=== PATIENT | female | born 1985 | race Caucasian/White ===

== ENCOUNTER 2020-10-15 17:56 | Inpatient (IN) | payer SELFPAY ==
--- NOTE | 2020-10-15 18:09 | ECG_ITS ---
[facility] ED Test Date: 2020-10-15 Pat Name: Agnieszka Felix Department: Room: Gender: Female Lead Coater: : 1985 Requested By: Octaviano Robertson Order Number: [id number] Burns MD: Francie Tucker M.D. Measurements Intervals [place] Rate: 64 P: 81 SD: 172 QRS: 56 QRSD: 105 T: 73 QT: 396 QTc: 410 Interpretive Statements SINUS RHYTHM INCOMPLETE RIGHT BUNDLE BRANCH BLOCK [90+ ms QRS DURATION, TERMINAL R IN V1/V2, 40+ ms S IN I/aVL/V4/V5/V6] No previous ECG available for comparison Electronically Signed On 10-17-2020 20:34:42 CDT by Francie Tucker M.D. [email or web address] [email or web address] river county hospitalMomentum Biosciencesheltering arms [email or web address]/store/NU/[id number]/[id number] f
[2020-10-15 18:11] VITALS: BP 125/101; PULSE 65; RESP 18; TEMP 36.7; O2SAT 100
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
[2020-10-15] MEDS: neomycin-poly-bacitracin oint 0.9 gm Pkt 3 APPLIC TOPICAL (18:47)
[2020-10-15 18:57] LABS: Basophils # 0.1 10^3/uL (0.0-0.1); Basophils % 0.9 %; Eosinophils # 0.3 10^3/uL (0.0-0.8); Eosinophils % 3.2 %; Hematocrit 41.2 % (37.0-47.0); Hemoglobin 13.5 g/dL (11.5-15.3); Lymphocytes # 3.5 10^3/uL (0.8-4.8); Lymphocytes % 32.6 %; Mean Corpuscular HGB Conc 32.8 g/dL (30.0-36.0); Mean Corpuscular Hemoglobin 29.5 pg (28.0-34.0); Mean Corpuscular Volume 90.2 fL (81-99); Mean Platelet Volume 10.2 fL (7.4-10.4); Monocytes # 0.5 10^3/uL (0.2-0.9); Monocytes % 4.9 %; Neutrophils # 6.25 10^3/uL (1.8-7.7); Nucleated Red Blood Cells % 0 %; Platelet Count 256 10^3/cmm (130-400); Red Blood Count 4.57 10^6/uL (4.1-5.3); Red Cell Distribution Width 12.6 % (12.1-15.1); White Blood Count 10.8 10^3/uL (4.0-10.0)
[2020-10-15 18:58] LABS: Add Urine Microscopic? NO; Charge for UA Resulting for Rev
[2020-10-15 19:13] LABS: Amphetamines Screen Urine Positive (Negative); Barbiturates Screen Urine Negative (Negative); Benzodiazepines Screen Urine Positive (Negative); Bilirubin Urine Neg (Negative); Blood Urine Neg (Negative); Cocaine Screen Urine Negative (Negative); Glucose Urine UA Norm (Normal); Ketones Urine Negative (Negative); Leukocyte Esterase Urine Negative (Negative); Nitrate Urine Negative (Negative); Opiate Screen Urine Negative (Negative); PCP Screen Urine Negative (Negative); Protein Urine Neg (Negative); THC Screen Urine Positive (Negative); Urine Appearance Clear (CLEAR); Urine Color Yellow (Yellow); Urobilinogen Urine Norm (Negative); pH Urine 5 (5-7)
[2020-10-15 19:38] LABS: Alanine Aminotransferase 13 U/L (0-33); Albumin Level 4.6 g/dL (3.5-5.2); Alkaline Phosphatase 64 IU/L (35-105); Anion Gap 17.5 (5-19); Aspartate Amino Transferase 18 U/L (0-32); Blood Urea Nitrogen 12 mg/dL (6-20); Calcium 9.6 mg/dL (8.5-10.5); Carbon Dioxide 22 mmol/L (22-29); Chloride 104 mmol/L (98-107); Globulin 2.4 g/dL (1.3-4.6); Glucose 82 mg/dL (65-115); Osmolality Calculated 287 mOsm/kg (285-295); Potassium 4.5 mmol/L (3.5-5.1); Sodium 139 mmol/L (136-145); Total Bilirubin 0.5 mg/dL (0.15-1.2)
[2020-10-15 20:15] LABS: Acetaminophen < 5.0 ug/mL (10-30); Alcohol Level < 10 mg/dL (0-10)
[2020-10-15 20:31] VITALS: BP 129/92; PULSE 68; RESP 17; O2SAT 98
[2020-10-15 21:41] LABS: HCG Qualitative Urine. Negative (Negative)
[2020-10-15 22:00] VITALS: BP 127/78; PULSE 96; RESP 16; TEMP 37; O2SAT 98
[2020-10-16] MEDS: acetaminophen 325 mg Tablet 650 MG PO (05:33)
[2020-10-16 06:00] VITALS: BP 109/74; PULSE 73; RESP 15; TEMP 36.8; O2SAT 97
[2020-10-16 14:00] VITALS: BP 117/76; PULSE 74; RESP 17; TEMP 36.7; O2SAT 97
[2020-10-16] MEDS: nicotine 2 mg Gum BUCCAL (14:23)
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
[2020-10-16] MEDS: sertraline 50 mg Tablet PO (17:19)
[2020-10-16] MEDS: trazodone 50 mg Tablet PO (20:11)
--- NOTE | 2020-10-16 20:22 | PC.NURSE ---
PM Assessment Pt resting in her room, respirations normal, Heart and lung sounds WNL, denies SI/HI, Denies AH/VH, Denies pain, Pt is cooperative with staff but wants to be left alone, shortly after assessment, pt came to the phone, spoke with family, returned to her room where she is resting calmly.
[2020-10-16 20:24] VITALS: BP 116/80; PULSE 76; RESP 18; TEMP 36.8; O2SAT 98
--- NOTE | 2020-10-16 20:56 | PC.NURSE ---
pt requested sleep med, Trazodone 50mg po given.
[2020-10-17 06:00] VITALS: BP 110/75; PULSE 68; RESP 18; TEMP 36.8; O2SAT 97
[2020-10-17] MEDS: nicotine 21 mg Patch 1 PATCH TRANSDERMA (07:52)
[2020-10-17] MEDS: sertraline 50 mg Tablet PO (07:52)
--- NOTE | 2020-10-17 08:35 | PC.NUTR ---
Nutrition assessment triggered d/t MST score of 3 for decreased appetite and weight loss. Appetite appears good, with pt consuming 75% X 4 meals since admit. Recommend to monitor weight, as pt does report weight loss. See full RD assessment for further details.
--- NOTE | 2020-10-17 11:29 | PM.NPN ---
Subjective NPU Subjective: Interval history: I met with the patient in her room with the door open. She says that she is doing better today. Her mood is improved and she does not feel nearly so depressed or anxious. She says that the voices are farther away, quieter, and mumbling?she cannot make out what they are saying. Therefore, the voices are not making derogatory comments today. Therefore also, she has no urge to cut on herself at this point. She denies visual hallucinations. She denies suicidal and homicidal ideation. She denies side effects from her medication. We talked about her plans for after hospitalization. She is going to go to her mother's house at least for a few days. The patient does describe some itching that started when she got here, before she started on the Zoloft. No side effects noted on Zoloft. Mental Status Exam MSE Comments: I met with the patient in their room, and they were appropriately groomed and dressed wearing hospital scrubs, calm, cooperative, interactive, limited eye contact Mild psychomotor agitation Speech is very quiet at a regular rate and rhythm, not pressured Alert, oriented to person, situation Attention and concentration were intact to exam Memory is adequate for the interview Mood is improved. Affect is shy and nervous. Thought process is logical and goal directed. Thought content No auditory or visual hallucinations, no suicidal ideation or homicidal ideation. 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 She expresses interest in attending rehab and learning to abstain from substance use. It may be that both her mood and psychotic disorders are induced by her drug use. 1. Start Zoloft 50 mg daily for depression. 2. Continue every 15 minute checks for safety. 3. Encourage individual, group and milieu therapies. 4. Encourage sober living treatment after discharge at the highest level of care to which he is willing to commit. Involuntary Hold Information 96 Hour Hold: 96 Hour Involuntary Admission: No Attestations NPU Medical Necessity Statement*: Psychiatric hospitalization is medically necessary to prevent access to lethal means, to reevaluate medication, and to coordinate a safe discharge. I would like for her to have at least 24 hours of improved mood before discharging her. Anticipate discharge tomorrow if she continues to do as well as she is now. 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
[2020-10-17 14:00] VITALS: BP 112/79; PULSE 69; RESP 17; TEMP 36.6; O2SAT 98
[2020-10-17 20:28] VITALS: BP 120/81; PULSE 86; RESP 16; TEMP 36.9; O2SAT 96
[2020-10-17] MEDS: hyDROXYzine 25 mg Capsule 50 MG PO (23:01)
[2020-10-17] MEDS: trazodone 50 mg Tablet PO (23:03)
[2020-10-17] MEDS: hydrocortisone 1% cream 28 gm 1 APPLIC TOPICAL (23:49)
--- NOTE | 2020-10-17 23:50 | PC.NURSE ---
Trazodone 50mg PO for sleep / patient request, Vistaril 50mg PO for anxiety / patient request anxiety and HC cream for itchey bug bites given
[2020-10-18 06:00] VITALS: BP 104/75; PULSE 69; RESP 16; TEMP 36.8; O2SAT 99
[2020-10-18] MEDS: sertraline 50 mg Tablet PO (09:11)
[2020-10-18] MEDS: nicotine 2 mg Gum BUCCAL ×2 (09:11→15:24)
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
[2020-10-18 13:40] VITALS: BP 104/75; PULSE 69; RESP 16; TEMP 36.8; O2SAT 99
[2020-10-18 15:42] VITALS: BP 104/75; PULSE 69; RESP 16; TEMP 36.8; O2SAT 99
== END 2020-10-18 18:15 | disposition home or self-care (01) | DRG 885 ==
LOC: ER 19:32 → NP 20:05
PROVIDERS: Admitting Provider Psychiatry & Neurology Child & Adolescent Psychiatry; Emergency Provider Emergency Medicine; PCP Nurse Practitioner; Visit Provider Psychiatry & Neurology Child & Adolescent Psychiatry
DX: F33.3 Major depressive disorder, recurrent, severe with psychotic symptoms (principal); R45.851 Suicidal ideations; F15.159 Other stimulant abuse with stimulant-induced psychotic disorder, unspecified
CPT/HCPCS: 80053; 80306; 80307; 81003; 81025; 85025; 93005; 99285

== ENCOUNTER 2021-04-07 23:05 | Inpatient (IN) | payer MEDICAID, SELFPAY ==
[2021-04-07 23:26] VITALS: BP 131/88; PULSE 75; RESP 18; TEMP 36.6; O2SAT 98; BMI 22.4
--- NOTE | 2021-04-08 00:17 | W.ED.PSYCHS ---
Documented by User: ROSARIO Bates 04/08/21 17:31 HPI - Psych General: Chief Complaint: Psychiatric Symptoms Stated Complaint: Psyciatric Symptoms-SI Time Seen by Provider: 04/07/21 23:29 History of Present Illness: HPI Narrative: Patient is a 35-year-old female who comes to the ED with SI and auditory hallucinations. She has been having increased thoughts of SI lately but does not have a plan. She admits having a history of methamphetamine abuse but says she has been clean for several months now. Patient says she has been hearing auditory hallucinations for approximately a year now. She states that she hears 3 different voices. 1 voice is that of her sister and she describes it most the time is nice voice and does not say anything negative tomorrow. The other voices of a little girl and it will tell her that she is a terrible person and she should kill herself. The third where she hears tells her everything is going to be okay. Patient denies any other current symptoms. Associated symptoms: Reports auditory hallucinations, depression and suicidal ideation; Deny visual hallucinations or homicidal ideation Review of Systems Const: Denies: fever(s), chills or fatigue Eyes: Denies: change in vision or eye discomfort ENMT: Denies: throat pain, odynophagia, nasal discharge or nasal congestion Card: Denies: chest pain, palpitations, edema, swelling of feet/ankles, dyspnea on exertion or orthopnea Resp: Denies: dyspnea, productive cough or non-productive cough GI: Denies: abdominal pain, nausea, vomiting, diarrhea, constipation or hematochezia : Denies: flank pain, dysuria or hematuria Musc: Denies: neck pain, back pain or extremity swelling Skin/Breast: Denies: rash or new lesions Neuro: Denies: headache(s), numbness in extremities or weakness in extremities Psych: Reports: depression, loss of interest, auditory hallucinations and suicidal ideation; Denies: visual hallucinations or homicidal ideation [facility] ED PFSH: Medical History (Updated 04/09/21 @ 11:08 by Grzegorz Landeros MD) Depression Psychiatric care Female Reproductive History: Date of last menstrual period: 03/16/09 Physical Exam Const: COMMON NORMALS: no acute distress, patient oriented x3 and alert GENERAL APPEARANCE: cooperative and comfortable HENMT: COMMON NORMALS: normocephalic HEAD & SCALP: normocephalic MOUTH: Normal oral and palatal mucosa present THROAT: posterior oropharynx normal and uvula midline Neck/C-Spine: COMMON NORMALS: supple GENERAL: Yes normal visual inspection Resp: COMMON NORMALS: normal respiratory effort, No retractions, No use of accessory muscles and clear to auscultation bilaterally AUSCULTATION: clear to auscultation bilaterally Cardio: COMMON NORMALS: regular rate, regular rhythm, S1 normal heart sound present, S2 normal heart sound present, No gallops present (Cardio), No clicks present (Cardio), No murmurs present (Cardio) and Peripheral pulses 2+ throughout RATE: regular rate RHYTHM: regular rhythm HEART SOUNDS: S1 normal heart sound present and S2 normal heart sound present PERIPHERAL PULSES: Peripheral pulses 2+ throughout GI: COMMON NORMALS: Normal to inspection, nondistended, normoactive bowel sounds present, Soft to palpation, non-tender and no masses PALPATION: Yes Soft to palpation : COMMON NORMALS: Yes no CVA tenderness BLADDER/KIDNEY EXAM: Yes no CVA tenderness Back/Pelvis: COMMON NORMALS: no CVA tenderness Extremity: COMMON NORMALS: normal to inspection Neuro: COMMON NORMALS: patient oriented x3 and moves all extremities SENSORIUM/ORIENTATION: Yes alert Skin: GENERAL SKIN EXAM: dry skin Course Vital Signs: Vital signs: Vital Signs Temperature 97.5 F L 04/09/21 20:54 Pulse Rate 69 04/09/21 20:54 Respiratory Rate 17 04/09/21 20:54 Blood Pressure 144/89 04/09/21 20:54 Pulse Oximetry 96 04/09/21 20:54 MDM - Psych Lab Data Attestation: I reviewed the patient's lab results. Result diagrams: 04/08/21 00:45 04/08/21 00:45 Labs: Lab Results 04/07/21 04/07/21 04/08/21 23:45 23:45 00:45 WBC 8.6 10^3/uL 10^3/uL (4.0-10.0) RBC 4.00 10^6/uL L 10^6/uL (4.1-5.3) Hgb 11.9 g/dL g/dL (11.5-15.3) Hct 36.3 % L % (37.0-47.0) MCV 90.8 fl fl (81-99) MCH 29.8 pg pg (28.0-34.0) MCHC 32.8 g/dL g/dL (30.0-36.0) RDW 12.9 % % (12.1-15.1) Plt Count 268 10^3/cmm 10^3/cmm (130-400) MPV 9.6 fL fL (7.4-10.4) Neut % (Auto) 58.4 % % Lymph % (Auto) 33.5 % % Desha % (Auto) 4.2 % % Eos % (Auto) 3.0 % % Baso % (Auto) 0.7 % % Neut # (Auto) 5.03 10^3/uL 10^3/uL (1.8-7.7) Lymph # (Auto) 2.9 10^3/uL 10^3/uL (0.8-4.8) Desha # (Auto) 0.4 10^3/uL 10^3/uL (0.2-0.9) Eos # (Auto) 0.3 10^3/uL 10^3/uL (0.0-0.8) Baso # (Auto) 0.1 10^3/uL 10^3/uL (0.0-0.1) Nucleated RBC % (auto) 0 % % Nucleated RBCs # 0.0 /100WBC /100WBC Sodium Potassium Chloride Carbon Dioxide Anion Gap BUN Creatinine GFR Calculation Glucose Calculated Osmolality Calcium Total Bilirubin AST ALT Alkaline Phosphatase Total Protein Albumin Globulin HCG, Qual Urine Color Yellow (Yellow) Urine Appearance Clear (CLEAR) Urine pH 5 (5-7) Ur Specific [place] 1.015 (1.005-1.030) Urine Protein Neg (Negative) Urine Glucose (UA) Norm (Normal) Urine Ketones Negative (Negative) Urine Blood Neg (Negative) Urine Nitrate Negative (Negative) Urine Bilirubin Neg (Negative) Urine Urobilinogen Norm mg/dL mg/dL (Negative) Ur Leukocyte Esterase Negative (Negative) Salicylates Urine Opiates Screen Negative ng/mL ng/mL (Negative) Acetaminophen Ur Barbiturates Screen Negative ng/mL ng/mL (Negative) Ur Phencyclidine Scrn Negative ng/mL ng/mL (Negative) Ur Amphetamines Screen Negative ng/mL ng/mL (Negative) U Benzodiazepines Scrn Negative ng/mL ng/mL (Negative) Urine Cocaine Screen Negative ng/mL ng/mL (Negative) U Marijuana (THC) Screen Negative ng/mL ng/mL (Negative) Ethyl Alcohol 04/08/21 04/08/21 00:45 00:45 WBC RBC Hgb Hct MCV MCH MCHC RDW Plt Count MPV Neut % (Auto) Lymph % (Auto) Desha % (Auto) Eos % (Auto) Baso % (Auto) Neut # (Auto) Lymph # (Auto) Desha # (Auto) Eos # (Auto) Baso # (Auto) Nucleated RBC % (auto) Nucleated RBCs # Sodium 139 mmol/L mmol/L (136-145) Potassium 4.4 mmol/L mmol/L (3.5-5.1) Chloride 104 mmol/L mmol/L (98-107) Carbon Dioxide 23 mmol/L mmol/L (22-29) Anion Gap 16.4 (5-19) BUN 16 mg/dL mg/dL (6-20) Creatinine 0.6 mg/dL mg/dL (0.5-0.9) GFR Calculation 113.8 mL/min mL/min (90-130) Glucose 108 mg/dL mg/dL (65-115) Calculated Osmolality 290 mOsm/kg mOsm/kg (285-295) Calcium 9.9 mg/dL mg/dL (8.5-10.5) Total Bilirubin 0.2 mg/dL mg/dL (0.15-1.2) AST 17 U/L U/L (0-32) ALT 25 U/L U/L (0-33) Alkaline Phosphatase 58 IU/L IU/L (35-105) Total Protein 6.7 g/dL g/dL (6.6-8.7) Albumin 4.1 g/dL g/dL (3.5-5.2) Globulin 2.6 g/dL g/dL (1.3-4.6) HCG, Qual Negative (Negative) Urine Color Urine Appearance Urine pH Ur Specific [place] Urine Protein Urine Glucose (UA) Urine Ketones Urine Blood Urine Nitrate Urine Bilirubin Urine Urobilinogen Ur Leukocyte Esterase Salicylates 0.8 mg/dL L mg/dL (3-10) Urine Opiates Screen Acetaminophen < 5.0 ug/mL L ug/mL (10-30) Ur Barbiturates Screen Ur Phencyclidine Scrn Ur Amphetamines Screen U Benzodiazepines Scrn Urine Cocaine Screen U Marijuana (THC) Screen Ethyl Alcohol < 10 mg/dL mg/dL (0-10) Discharge Plan Discharge Patient Disposition: Admitted As Inpatient Admit Provider: Grzegorz Landeros Condition: Stable Sign Out Sign Out Data: Patient Sign Out occurred on 04/08/21 at 07:12. Patient's care was discussed, and care was transferred from to Abram Jimenez DO. Coding Level of Care Code ED Director Of Leadership Development for Chg Fwd Exam Comprehensive Documented by User: Abram Jimenez DO 04/08/21 07:39 HPI - Psych General: Chief Complaint: Psychiatric Symptoms Stated Complaint: Psyciatric Symptoms-SI Time Seen by Provider: 04/07/21 23:29 PFSH ED PFSH: Medical History (Updated 04/09/21 @ 11:08 by Grzegorz Landeros MD) Depression Psychiatric care Course Vital Signs: Vital signs: Vital Signs Temperature 97.5 F L 04/09/21 20:54 Pulse Rate 69 04/09/21 20:54 Respiratory Rate 17 04/09/21 20:54 Blood Pressure 144/89 04/09/21 20:54 Pulse Oximetry 96 04/09/21 20:54 MDM - Psych MDM Narrative Medical decision making narrative: Care assumed a change of shift from Dr. Bello. Chart reviewed discussed Dr. Tobin orders written for acute psychosis suicidal ideation. Lab Data Result diagrams: 04/08/21 00:45 04/08/21 00:45 Labs: Lab Results 04/07/21 04/07/21 04/08/21 23:45 23:45 00:45 WBC 8.6 10^3/uL 10^3/uL (4.0-10.0) RBC 4.00 10^6/uL L 10^6/uL (4.1-5.3) Hgb 11.9 g/dL g/dL (11.5-15.3) Hct 36.3 % L % (37.0-47.0) MCV 90.8 fl fl (81-99) MCH 29.8 pg pg (28.0-34.0) MCHC 32.8 g/dL g/dL (30.0-36.0) RDW 12.9 % % (12.1-15.1) Plt Count 268 10^3/cmm 10^3/cmm (130-400) MPV 9.6 fL fL (7.4-10.4) Neut % (Auto) 58.4 % % Lymph % (Auto) 33.5 % % Desha % (Auto) 4.2 % % Eos % (Auto) 3.0 % % Baso % (Auto) 0.7 % % Neut # (Auto) 5.03 10^3/uL 10^3/uL (1.8-7.7) Lymph # (Auto) 2.9 10^3/uL 10^3/uL (0.8-4.8) Desha # (Auto) 0.4 10^3/uL 10^3/uL (0.2-0.9) Eos # (Auto) 0.3 10^3/uL 10^3/uL (0.0-0.8) Baso # (Auto) 0.1 10^3/uL 10^3/uL (0.0-0.1) Nucleated RBC % (auto) 0 % % Nucleated RBCs # 0.0 /100WBC /100WBC Sodium Potassium Chloride Carbon Dioxide Anion Gap BUN Creatinine GFR Calculation Glucose Calculated Osmolality Calcium Total Bilirubin AST ALT Alkaline Phosphatase Total Protein Albumin Globulin HCG, Qual Urine Color Yellow (Yellow) Urine Appearance Clear (CLEAR) Urine pH 5 (5-7) Ur Specific [place] 1.015 (1.005-1.030) Urine Protein Neg (Negative) Urine Glucose (UA) Norm (Normal) Urine Ketones Negative (Negative) Urine Blood Neg (Negative) Urine Nitrate Negative (Negative) Urine Bilirubin Neg (Negative) Urine Urobilinogen Norm mg/dL mg/dL (Negative) Ur Leukocyte Esterase Negative (Negative) Salicylates Urine Opiates Screen Negative ng/mL ng/mL (Negative) Acetaminophen Ur Barbiturates Screen Negative ng/mL ng/mL (Negative) Ur Phencyclidine Scrn Negative ng/mL ng/mL (Negative) Ur Amphetamines Screen Negative ng/mL ng/mL (Negative) U Benzodiazepines Scrn Negative ng/mL ng/mL (Negative) Urine Cocaine Screen Negative ng/mL ng/mL (Negative) U Marijuana (THC) Screen Negative ng/mL ng/mL (Negative) Ethyl Alcohol 04/08/21 04/08/21 00:45 00:45 WBC RBC Hgb Hct MCV MCH MCHC RDW Plt Count MPV Neut % (Auto) Lymph % (Auto) Desha % (Auto) Eos % (Auto) Baso % (Auto) Neut # (Auto) Lymph # (Auto) Desha # (Auto) Eos # (Auto) Baso # (Auto) Nucleated RBC % (auto) Nucleated RBCs # Sodium 139 mmol/L mmol/L (136-145) Potassium 4.4 mmol/L mmol/L (3.5-5.1) Chloride 104 mmol/L mmol/L (98-107) Carbon Dioxide 23 mmol/L mmol/L (22-29) Anion Gap 16.4 (5-19) BUN 16 mg/dL mg/dL (6-20) Creatinine 0.6 mg/dL mg/dL (0.5-0.9) GFR Calculation 113.8 mL/min mL/min (90-130) Glucose 108 mg/dL mg/dL (65-115) Calculated Osmolality 290 mOsm/kg mOsm/kg (285-295) Calcium 9.9 mg/dL mg/dL (8.5-10.5) Total Bilirubin 0.2 mg/dL mg/dL (0.15-1.2) AST 17 U/L U/L (0-32) ALT 25 U/L U/L (0-33) Alkaline Phosphatase 58 IU/L IU/L (35-105) Total Protein 6.7 g/dL g/dL (6.6-8.7) Albumin 4.1 g/dL g/dL (3.5-5.2) Globulin 2.6 g/dL g/dL (1.3-4.6) HCG, Qual Negative (Negative) Urine Color Urine Appearance Urine pH Ur Specific [place] Urine Protein Urine Glucose (UA) Urine Ketones Urine Blood Urine Nitrate Urine Bilirubin Urine Urobilinogen Ur Leukocyte Esterase Salicylates 0.8 mg/dL L mg/dL (3-10) Urine Opiates Screen Acetaminophen < 5.0 ug/mL L ug/mL (10-30) Ur Barbiturates Screen Ur Phencyclidine Scrn Ur Amphetamines Screen U Benzodiazepines Scrn Urine Cocaine Screen U Marijuana (THC) Screen Ethyl Alcohol < 10 mg/dL mg/dL (0-10) Discharge Plan Discharge Patient Disposition: Admitted As Inpatient Admit Provider: Grzegorz Landeros Condition: Stable Sign Out Sign Out Data: Patient Sign Out occurred on 04/08/21 at 07:12. Patient's care was discussed, and care was transferred from to Abram Jimenez DO. Coding Level of Care Code ED Director Of Leadership Development for Chg Fwd Exam Comprehensive Documented by User: Chano Bello DO 04/09/21 22:26 HPI - Psych General: Chief Complaint: Psychiatric Symptoms Stated Complaint: Psyciatric Symptoms-SI Time Seen by Provider: 04/07/21 23:29 History of Present Illness: HPI Narrative: This patient was originally seen by Mr Aleksey PA-C. I agree with his history, evaluation, and treatment. [facility] ED PFSH: Medical History (Updated 04/09/21 @ 11:08 by Grzegorz Landeros MD) Depression Psychiatric care Course Vital Signs: Vital signs: Vital Signs Temperature 97.5 F L 04/09/21 20:54 Pulse Rate 69 04/09/21 20:54 Respiratory Rate 17 04/09/21 20:54 Blood Pressure 144/89 04/09/21 20:54 Pulse Oximetry 96 04/09/21 20:54 MDM - Psych Lab Data Result diagrams: 04/08/21 00:45 04/08/21 00:45 Labs: Lab Results 04/07/21 04/07/21 04/08/21 23:45 23:45 00:45 WBC 8.6 10^3/uL 10^3/uL (4.0-10.0) RBC 4.00 10^6/uL L 10^6/uL (4.1-5.3) Hgb 11.9 g/dL g/dL (11.5-15.3) Hct 36.3 % L % (37.0-47.0) MCV 90.8 fl fl (81-99) MCH 29.8 pg pg (28.0-34.0) MCHC 32.8 g/dL g/dL (30.0-36.0) RDW 12.9 % % (12.1-15.1) Plt Count 268 10^3/cmm 10^3/cmm (130-400) MPV 9.6 fL fL (7.4-10.4) Neut % (Auto) 58.4 % % Lymph % (Auto) 33.5 % % Desha % (Auto) 4.2 % % Eos % (Auto) 3.0 % % Baso % (Auto) 0.7 % % Neut # (Auto) 5.03 10^3/uL 10^3/uL (1.8-7.7) Lymph # (Auto) 2.9 10^3/uL 10^3/uL (0.8-4.8) Desha # (Auto) 0.4 10^3/uL 10^3/uL (0.2-0.9) Eos # (Auto) 0.3 10^3/uL 10^3/uL (0.0-0.8) Baso # (Auto) 0.1 10^3/uL 10^3/uL (0.0-0.1) Nucleated RBC % (auto) 0 % % Nucleated RBCs # 0.0 /100WBC /100WBC Sodium Potassium Chloride Carbon Dioxide Anion Gap BUN Creatinine GFR Calculation Glucose Calculated Osmolality Calcium Total Bilirubin AST ALT Alkaline Phosphatase Total Protein Albumin Globulin HCG, Qual Urine Color Yellow (Yellow) Urine Appearance Clear (CLEAR) Urine pH 5 (5-7) Ur Specific [place] 1.015 (1.005-1.030) Urine Protein Neg (Negative) Urine Glucose (UA) Norm (Normal) Urine Ketones Negative (Negative) Urine Blood Neg (Negative) Urine Nitrate Negative (Negative) Urine Bilirubin Neg (Negative) Urine Urobilinogen Norm mg/dL mg/dL (Negative) Ur Leukocyte Esterase Negative (Negative) Salicylates Urine Opiates Screen Negative ng/mL ng/mL (Negative) Acetaminophen Ur Barbiturates Screen Negative ng/mL ng/mL (Negative) Ur Phencyclidine Scrn Negative ng/mL ng/mL (Negative) Ur Amphetamines Screen Negative ng/mL ng/mL (Negative) U Benzodiazepines Scrn Negative ng/mL ng/mL (Negative) Urine Cocaine Screen Negative ng/mL ng/mL (Negative) U Marijuana (THC) Screen Negative ng/mL ng/mL (Negative) Ethyl Alcohol 04/08/21 04/08/21 00:45 00:45 WBC RBC Hgb Hct MCV MCH MCHC RDW Plt Count MPV Neut % (Auto) Lymph % (Auto) Desha % (Auto) Eos % (Auto) Baso % (Auto) Neut # (Auto) Lymph # (Auto) Desha # (Auto) Eos # (Auto) Baso # (Auto) Nucleated RBC % (auto) Nucleated RBCs # Sodium 139 mmol/L mmol/L (136-145) Potassium 4.4 mmol/L mmol/L (3.5-5.1) Chloride 104 mmol/L mmol/L (98-107) Carbon Dioxide 23 mmol/L mmol/L (22-29) Anion Gap 16.4 (5-19) BUN 16 mg/dL mg/dL (6-20) Creatinine 0.6 mg/dL mg/dL (0.5-0.9) GFR Calculation 113.8 mL/min mL/min (90-130) Glucose 108 mg/dL mg/dL (65-115) Calculated Osmolality 290 mOsm/kg mOsm/kg (285-295) Calcium 9.9 mg/dL mg/dL (8.5-10.5) Total Bilirubin 0.2 mg/dL mg/dL (0.15-1.2) AST 17 U/L U/L (0-32) ALT 25 U/L U/L (0-33) Alkaline Phosphatase 58 IU/L IU/L (35-105) Total Protein 6.7 g/dL g/dL (6.6-8.7) Albumin 4.1 g/dL g/dL (3.5-5.2) Globulin 2.6 g/dL g/dL (1.3-4.6) HCG, Qual Negative (Negative) Urine Color Urine Appearance Urine pH Ur Specific [place] Urine Protein Urine Glucose (UA) Urine Ketones Urine Blood Urine Nitrate Urine Bilirubin Urine Urobilinogen Ur Leukocyte Esterase Salicylates 0.8 mg/dL L mg/dL (3-10) Urine Opiates Screen Acetaminophen < 5.0 ug/mL L ug/mL (10-30) Ur Barbiturates Screen Ur Phencyclidine Scrn Ur Amphetamines Screen U Benzodiazepines Scrn Urine Cocaine Screen U Marijuana (THC) Screen Ethyl Alcohol < 10 mg/dL mg/dL (0-10) Discharge Plan Discharge Patient Disposition: Admitted As Inpatient Admit Provider: Grzegorz Landeros Condition: Stable Sign Out Sign Out Data: Patient Sign Out occurred on 04/08/21 at 07:12. Patient's care was discussed, and care was transferred from to Abram Jimenez DO. Coding Level of Care Code ED Director Of Leadership Development for Chg Fwd Exam Comprehensive
[2021-04-08 00:22] LABS: Add Urine Microscopic? NO; Charge for UA Resulting for Rev
[2021-04-08 00:24] LABS: Urine Color Yellow (Yellow)
[2021-04-08 00:25] LABS: Bilirubin Urine Neg (Negative); Blood Urine Neg (Negative); Glucose Urine UA Norm (Normal); Ketones Urine Negative (Negative); Leukocyte Esterase Urine Negative (Negative); Nitrate Urine Negative (Negative); Protein Urine Neg (Negative); Specific Gravity, Urine 1.015 (1.005-1.030); Urine Appearance Clear (CLEAR); Urobilinogen Urine Norm (Negative); pH Urine 5 (5-7)
[2021-04-08 00:33] LABS: Amphetamines Screen Urine Negative (Negative); Barbiturates Screen Urine Negative (Negative); Benzodiazepines Screen Urine Negative (Negative); Cocaine Screen Urine Negative (Negative); Opiate Screen Urine Negative (Negative); PCP Screen Urine Negative (Negative); THC Screen Urine Negative (Negative)
[2021-04-08 00:52] LABS: Basophils # 0.1 10^3/uL (0.0-0.1); Basophils % 0.7 %; Eosinophils # 0.3 10^3/uL (0.0-0.8); Hematocrit 36.3 % (37.0-47.0); Hemoglobin 11.9 g/dL (11.5-15.3); Lymphocytes # 2.9 10^3/uL (0.8-4.8); Lymphocytes % 33.5 %; Mean Corpuscular HGB Conc 32.8 g/dL (30.0-36.0); Mean Corpuscular Hemoglobin 29.8 pg (28.0-34.0); Mean Corpuscular Volume 90.8 fl (81-99); Mean Platelet Volume 9.6 fL (7.4-10.4); Monocytes # 0.4 10^3/uL (0.2-0.9); Monocytes % 4.2 %; Neutrophils # 5.03 10^3/uL (1.8-7.7); Neutrophils % 58.4 %; Nucleated Red Blood Cells % 0 %; Platelet Count 268 10^3/cmm (130-400); Red Cell Distribution Width 12.9 % (12.1-15.1); White Blood Count 8.6 10^3/uL (4.0-10.0)
[2021-04-08 01:03] LABS: HCG, Serum Qual Negative (Negative)
[2021-04-08 01:06] LABS: Alanine Aminotransferase 25 U/L (0-33); Albumin Level 4.1 g/dL (3.5-5.2); Alkaline Phosphatase 58 IU/L (35-105); Anion Gap 16.4 (5-19); Aspartate Amino Transferase 17 U/L (0-32); Blood Urea Nitrogen 16 mg/dL (6-20); Calcium 9.9 mg/dL (8.5-10.5); Carbon Dioxide 23 mmol/L (22-29); Chloride 104 mmol/L (98-107); Creatinine Clr Calc Pharmacy 121.2602; Globulin 2.6 g/dL (1.3-4.6); Glomerular Filtration Rate 113.8 mL/min (90-130); Glucose 108 mg/dL (65-115); Osmolality Calculated 290 mOsm/kg (285-295); Potassium 4.4 mmol/L (3.5-5.1); Salicylate 0.8 mg/dL (3-10); Sodium 139 mmol/L (136-145); Total Bilirubin 0.2 mg/dL (0.15-1.2); Total Protein 6.7 g/dL (6.6-8.7)
[2021-04-08 01:07] LABS: Acetaminophen < 5.0 ug/mL (10-30); Alcohol Level < 10 mg/dL (0-10)
[2021-04-08 06:24] VITALS: BP 97/57; PULSE 70; RESP 14; O2SAT 96
--- NOTE | 2021-04-08 09:18 | PC.NURSE ---
REPORT GIVEN TO BASSAM LUI ON NPU, PATIENT TAKEN VIA WHEELCHAIR- ALL BELONGINGS TAKEN WITH HER
[2021-04-08 09:22] VITALS: BP 109/64; PULSE 60; RESP 14; O2SAT 99
[2021-04-08 09:40] VITALS: BP 112/78; PULSE 99; RESP 18; TEMP 36.6; O2SAT 91
[2021-04-08] MEDS: acetaminophen 325 mg Tablet 650 MG PO (11:21)
[2021-04-08] MEDS: nicotine 2 mg Gum BUCCAL (11:21)
[2021-04-08 14:00] VITALS: BP 98/63; PULSE 77; RESP 18; TEMP 36.6; O2SAT 95
[2021-04-08 20:18] VITALS: BP 104/69; PULSE 76; RESP 18; O2SAT 97
[2021-04-09 06:00] VITALS: BP 122/82; PULSE 77; RESP 20; TEMP 36.7; O2SAT 99
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
[2021-04-09] MEDS: nicotine 2 mg Gum BUCCAL (12:36)
[2021-04-09] MEDS: ARIPiprazole 2 mg Tablet PO (13:17)
[2021-04-09] MEDS: sertraline 50 mg Tablet PO (13:17)
[2021-04-09 14:00] VITALS: BP 122/82; PULSE 77; RESP 20; TEMP 36.7; O2SAT 99
[2021-04-09 20:54] VITALS: BP 144/89; PULSE 69; RESP 17; TEMP 36.4; O2SAT 96
[2021-04-09] MEDS: trazodone 50 mg Tablet PO (21:13)
[2021-04-10 06:00] VITALS: BP 111/71; PULSE 67; RESP 16; TEMP 36.4; O2SAT 97
[2021-04-10] MEDS: ARIPiprazole 2 mg Tablet PO (09:09)
[2021-04-10] MEDS: sertraline 50 mg Tablet PO (09:09)
--- NOTE | 2021-04-10 10:23 | P.NPUPN_ITS ---
Subjective NPU Subjective: Interval history: We will now she says that she is feeling better. She says that the voices seem to be fading. She continues to be adamant that she has not used methamphetamine recently. Her mood is better. She works part-time at a [employer] when she is at [employer]. She says that she must stay there for at least 90 days but can stay there for a year if she wanted to. Her mother has cancer and she is also thinking about volunteering where her mother is getting treatment. She will have the first dose of Abilify 5 mg today and was to report any side effects. Mental Status Exam MSE Comments: This is a 35-year-old appropriate weight female who appears somewhat older than her stated age and is in no acute distress. She is dressed in hospital scrubs given and fair grooming. Dentition is very poor psychomotor activity normal. Speech is at a regular rate and rhythm, normal volume, good articulation, not pressured. Alert, oriented X3 Attention and concentration intact. Memory is intact Mood is mildly depressed. Affect is mildly dysphoric. Thought process is logical and goal-directed. Thought content: She says that the auditory hallucinations are fading. Denies visual hallucinations. No delusions or paranoia are noted. No current suicidal ideation, and no homicidal ideation. Fund of knowledge is average or a little below. Insight and judgment appear to be poor. Impulse control is poor. Cognition: Patient Appearance: Appropriate Level of Consciousness: Awake Patient Cognition Impaired: No Ability to Follow Directions: Good Patient Orientation (long list): Person, Place, Name, Age and Birthday Comprehension Ability: No Impairment Hallucination Type: None Delusion Description: Not Present Thought Process: Appropriate Affect: Affect Description: Appropriate and Calm Depressive Symptoms: Hopelessness and Unhappiness Behavior: Patient Behavior: Appropriate and Cooperative Speech Pattern: Appropriate and Clear Vitals/I&O/Wt Last Vital Signs Temp 97.5 F L 04/10/21 06:00 Pulse 67 04/10/21 06:00 Resp 16 04/10/21 06:00 BP 111/71 04/10/21 06:00 Pulse Ox 97 04/10/21 06:00 Data NPU : 04/08/21 00:45 04/08/21 00:45 A&P Assessment and plan (1) Methamphetamine abuse: Status: Acute (2) Depression: Status: Acute Plan This is a 35-year-old female with a long history of methamphetamine and other drug abuse who comes in complaining of auditory hallucinations. Plan: 1. Continue Prozac 20 mg and increase Abilify to 5 mg daily. She also takes trazodone and Vistaril for sleep. 2. Continue every 15 minute checks for safety. 3. Encourage individual, group and milieu therapies. 4. Encourage sober living treatment after discharge at the highest level of care to which she is willing to commit. 5. We will monitor for safety for herself in the community prior to discharge. Involuntary Hold Information 96 Hour Hold: 96 Hour Involuntary Admission: No Attestations NPU Medical Necessity Statement*: Inpatient hospitalization is medically necessary and the clinically appropriate intervention at this time. We will initiate medications and make changes as indicated. Coding Level of Care Code Acute Payroll Accounting Manager for Dmitri Lester Diagnoses Methamphetamine abuse F15.10 Depression F32.9
[2021-04-10 13:32] VITALS: BP 118/66; PULSE 89; RESP 16; TEMP 37.6; O2SAT 96
[2021-04-10] MEDS: nicotine 2 mg Gum BUCCAL (15:45)
[2021-04-10 21:01] VITALS: BP 134/84; PULSE 83; RESP 17; TEMP 36.9; O2SAT 97
[2021-04-10] MEDS: trazodone 50 mg Tablet PO (22:17)
[2021-04-11 06:00] VITALS: BP 94/67; PULSE 63; RESP 16; TEMP 35.9; O2SAT 97
[2021-04-11] MEDS: sertraline 50 mg Tablet PO (08:53)
[2021-04-11] MEDS: ARIPiprazole 2 mg Tablet PO (08:53)
[2021-04-11 14:00] VITALS: BP 114/79; PULSE 65; RESP 16; O2SAT 99
[2021-04-11] MEDS: nicotine 2 mg Gum BUCCAL (14:17)
--- NOTE | 2021-04-11 14:59 | W.PM.NPUPNS ---
Subjective NPU Subjective: Interval history: Patient presents today reporting that she is feeling a little better. We discussed the work that she and Dr. Landeros have done in regards to medications. And being unclear whether the absence of drugs or the addition of Abilify is responsible for her improvement. She does report that she had heard voices for some time with or without use. We discussed the likely target dose of Abilify to be between 5 and 10 mg given her report. May be a little higher. We discussed with benefits and alternatives of increasing the Abilify to 5 mg from his previous dose of 2 mg and she understood agreed to proceed as is documented in this note. Mental Status Exam MSE Comments: This is a well-nourished well-developed white female with hospital scrubs on with adequate grooming and limited eye contact. Very poor dentition. No abnormal movements except for mild psychomotor retardation. Cooperative with exam in no acute distress. Speech was decreased rate and volume. Mood described as okay, affect congruent. Thought process organized. Thought content: patient denies suicidal or homicidal ideation, there were no delusions reported or noted, she denied auditory or visual hallucinations. Attention and concentration were intact and memory appeared reliable but none were formally tested. She?s alert and oriented times three. Insight and judgment appeared fair. Vitals/I&O/Wt Last Vital Signs Temp 96.7 F L 04/12/21 05:27 Pulse 63 04/12/21 05:27 Resp 16 04/12/21 05:27 BP 94/67 04/12/21 05:27 Pulse Ox 97 04/12/21 05:27 Data NPU : 04/08/21 00:45 04/08/21 00:45 A&P Assessment and plan (1) Depression: Status: Acute (2) Methamphetamine abuse: Status: Acute (3) Psychosis: Status: Acute Plan Plan This is a 35-year-old female with a long history of methamphetamine and other drug abuse who comes in complaining of auditory hallucinations. Plan: 1.? Continue Prozac 20 mg and increase Abilify to 5 mg daily.? She also takes trazodone and Vistaril for sleep. 2.? Continue every 15 minute checks for safety. 3.? Encourage individual, group and milieu therapies. 4.? Encourage sober living treatment after discharge at the highest level of care to which she is willing to commit. 5.? We will monitor consider return to [facility] tomorrow. Involuntary Hold Information 96 Hour Hold: 96 Hour Involuntary Admission: No Attestations NPU Medical Necessity Statement*: Inpatient hospitalization is medically necessary and the clinically appropriate intervention at this time.? We will initiate medications and make changes as indicated. Likely length of stay 1-3 days. Coding Level of Care Code Acute Automotive Parts Interpreter for Dmitri Hoskinsd Diagnoses Depression F32.9 Methamphetamine abuse F15.10 Psychosis F29
[2021-04-11] MEDS: ARIPiprazole 10 mg Tablet 5 MG PO (16:01)
[2021-04-11 21:27] VITALS: BP 105/63; PULSE 64; RESP 16; TEMP 36.3; O2SAT 98
[2021-04-12 05:27] VITALS: BP 104/67; PULSE 70; RESP 17; TEMP 36.5; O2SAT 99
[2021-04-12] MEDS: sertraline 50 mg Tablet PO (09:24)
[2021-04-12] MEDS: ARIPiprazole 10 mg Tablet 5 MG PO (09:24)
[2021-04-12] MEDS: nicotine 2 mg Gum BUCCAL (09:26)
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
[2021-04-12 13:24] VITALS: BP 104/67; PULSE 70; RESP 17; TEMP 36.5; O2SAT 99
[2021-04-12 13:44] VITALS: BP 107/73; PULSE 78; RESP 17; TEMP 36.4; O2SAT 97
== END 2021-04-12 14:56 | disposition home or self-care (01) | DRG 885 ==
LOC: ER 04-08 07:12 → NP 04-08 08:53
PROVIDERS: Physician Assistant; Admitting Provider Psychiatry & Neurology Psychiatry; Emergency Provider Family Medicine; Visit Provider Psychiatry & Neurology Psychiatry
DX: F23 Brief psychotic disorder (principal); R45.851 Suicidal ideations; F32.A Depression, unspecified; F15.10 Other stimulant abuse, uncomplicated; Z65.3 Problems related to other legal circumstances
CPT/HCPCS: 80053; 80306; 80307; 81003; 84703; 85025; 97150; 97165; 99285

== ENCOUNTER → 2021-06-07 11:43 | Outpatient (BNVA) | payer OTHER, SELFPAY | PROVIDERS: Visit Provider Registered Nurse | DX: Z79.899 Other long term (current) drug therapy (principal) | CPT/HCPCS: 80053; 80061; 83036; 84443; 85025 ==

== ENCOUNTER → 2021-10-25 10:07 | Outpatient (BNVA) | payer BC, SELFPAY | PROVIDERS: Visit Provider Emergency Medicine | DX: R68.89 Other general symptoms and signs (principal); Z20.822 Contact with and (suspected) exposure to COVID-19; U07.1 COVID-19 | CPT/HCPCS: 87426 ==

== ENCOUNTER → 2022-01-02 10:16 | Outpatient (BNVA) | payer BC, SELFPAY | PROVIDERS: Visit Provider Emergency Medicine | DX: M25.551 Pain in right hip (principal); Z74.09 Other reduced mobility | CPT/HCPCS: 73502 ==

== ENCOUNTER → 2022-03-13 12:20 | Outpatient (BNVA) | payer BC, SELFPAY | PROVIDERS: Visit Provider Emergency Medicine | DX: R68.89 Other general symptoms and signs (principal); J40 Bronchitis, not specified as acute or chronic | CPT/HCPCS: 87400; 87426 ==

== ENCOUNTER → 2022-05-29 15:42 | Outpatient (BNVA) | payer BC, SELFPAY | PROVIDERS: Visit Provider Nurse Practitioner Family | DX: Z20.2 Contact with and (suspected) exposure to infections with a predominantly sexual mode of transmission (principal) | CPT/HCPCS: 87255; 87491; 87591 ==

== ENCOUNTER → 2024-12-16 09:53 | Outpatient (BNVA) | payer MEDICAID, SELFPAY | PROVIDERS: Visit Provider Nurse Practitioner | DX: R30.0 Dysuria (principal); R35.0 Frequency of micturition | CPT/HCPCS: 81000; 87086 ==